=== PATIENT | female | born 1985 | race Caucasian/White ===

== ENCOUNTER 2019-08-17 09:15 | Emergency (ER) | payer OTHER ==
[2019-08-17 09:21] VITALS: TEMP 98.2
--- NOTE | 2019-08-17 09:36 | ED ---
Chest Pain HPI - General Source: patient, RN notes reviewed Mode of arrival: wheelchair Limitations: no limitations <Neptali Roman - Last Filed: 08/17/19 11:06> <Demetria Sargent - Last Filed: 08/20/19 23:43> - General Chief Complaint: Chest Pain Stated Complaint: chest & jaw pain Time Seen by Provider: 08/17/19 09:22 - History of Present Illness Initial Comments: 33-year-old female sent emergency Department chief complaint of left-sided intermittent chest pain for the last 7-10 days. Patient states that it comes and goes on its own it is sometimes with exertion. Patient does not feel short of breath at this time no pleuritic chest pain. Patient states that she's also had separate occasions of dizziness and nausea states that they're not associated together. She admits that she does have a history of mitral valve prolapse or regurgitation but states that this was diagnosed when she was in middle school. She has no significant cardiac history no significant family cardiac history. She is a nonsmoker. She does have history of peptic ulcer disease. Does not complain any major reflux at this time. (Neptali Roman) - Related Data Previous Rx's Medication Instructions Recorded Omeprazole [PriLOSEC] 20 mg PO AC-BRKFST #14 cap 08/17/19 Allergies Allergy/AdvReac Type Severity Reaction Status Date / Time codeine Allergy Nausea Verified 08/17/19 09:21 Review of Systems ROS Other: All systems not noted in ROS Statement are negative. <Neptali Roman - Last Filed: 08/17/19 11:06> ROS Other: All systems not noted in ROS Statement are negative. <Demetria Sargent - Last Filed: 08/20/19 23:43> ROS Statement: Those systems with pertinent positive or pertinent negative responses have been documented in the HPI. EKG Findings - EKG Comments: EKG Findings:: EKG performed at 9:33 rate of 84 MS 142 QRS 78 QT status QTC 372/439 <Neptali Roman - Last Filed: 08/17/19 11:06> Past Medical History Additional Past Medical History / Comment(s): mitral valve prolapse History of Any Multi-Drug Resistant Organisms: None Reported Past Surgical History: Appendectomy, Section, Cholecystectomy, Hernia Repair, Tonsillectomy Additional Past Surgical History / Comment(s): kidney operation Past Psychological History: No Psychological Hx Reported Smoking Status: Never smoker Past Alcohol Use History: None Reported Past Drug Use History: None Reported <Neptali Roman - Last Filed: 08/17/19 11:06> General Exam Limitations: no limitations General appearance: alert, in no apparent distress Head exam: Present: atraumatic, normocephalic, normal inspection Eye exam: Present: normal appearance, PERRL, EOMI. Absent: scleral icterus, conjunctival injection, periorbital swelling ENT exam: Present: normal exam, normal oropharynx, mucous membranes moist, TM's normal bilaterally Neck exam: Present: normal inspection, full ROM. Absent: tenderness, meningismus, lymphadenopathy Respiratory exam: Present: normal lung sounds bilaterally. Absent: respiratory distress, wheezes, rales, rhonchi, stridor Cardiovascular Exam: Present: regular rate, normal rhythm, normal heart sounds. Absent: systolic murmur, diastolic murmur, rubs, gallop, clicks GI/Abdominal exam: Present: soft, tenderness (Mild epigastric tenderness), normal bowel sounds. Absent: distended, guarding, rebound, rigid Back exam: Absent: CVA tenderness (R), CVA tenderness (L) Neurological exam: Present: alert, oriented X3, CN II-XII intact Skin exam: Present: warm, dry, intact, normal color. Absent: rash <Neptali Roman - Last Filed: 08/17/19 11:06> Course Vital Signs 08/17/19 08/17/19 09:17 11:35 Temperature 98.2 F Pulse Rate 87 75 Respiratory 18 16 Rate Blood Pressure 108/74 107/77 O2 Sat by Pulse 100 99 Oximetry Chest Pain MDM <Neptali Roman - Last Filed: 08/17/19 11:06> <Demetria Sargent - Last Filed: 08/20/19 23:43> - [facility] Labs, EKG and chest x-ray. There are no acute findings. This may related to GERD, atypical chest pain. Patient will follow-up for echo, Holter monitor and was started on and antacids. Return parameters were discussed. (Neptali Roman) Jose was available for consultation in the emergency department. The history and physical exam were done by the midlevel provider. I was consulted for this patients care. I reviewed the case with the midlevel provider and based on their presentation of the patient, I agree with the assessment, medical decision making and plan of care as documented. Chart was dictated using [employer] dictation software. Attempts were made to correct any dictation errors however some typographical errors may persist. Patient was seen during a [facility] emergency due to the Covid-19 pandemic. (Demetria Sargent) Disposition Is patient prescribed a controlled substance at d/c from ED?: No Time of Disposition: 11:07 <Neptali Roman - Last Filed: 08/17/19 11:06> <Demetria Sargent - Last Filed: 08/20/19 23:43> Clinical Impression: Atypical chest pain Disposition: HOME SELF-CARE Condition: Stable Instructions (If sedation given, give patient instructions): Chest Pain (ED) Additional Instructions: Please return to the Emergency Department if symptoms worsen or any other concerns. Prescriptions: Omeprazole [PriLOSEC] 20 mg PO -BRKFST #14 cap Referrals: Umair Harrison MD [Primary Care Provider] - 1-2 days Lexx Camejo MD [STAFF PHYSICIAN] - 1-2 days
[2019-08-17 09:51] LABS: Basophils % (A) 0 %; Eosinophils # (A) 0.2 k/uL (0-0.7); Eosinophils % (A) 2 %; HCT 41.3 % (34.0-46.0); HGB 13.5 gm/dL (11.4-16.0); Lymphocytes # (A) 1.7 k/uL (1.0-4.8); Lymphocytes % (A) 22 %; MCH 28.8 pg (25.0-35.0); MCHC 32.8 g/dL (31.0-37.0); MCV 87.8 fL (80.0-100.0); Mean Platelet Volume 7.9; Monocytes # (A) 0.3 k/uL (0-1.0); Monocytes % (A) 4 %; Neutrophils # (A) 5.3 k/uL (1.3-7.7); Neutrophils % (A) 71 %; Platelet Count 307 k/uL (150-450); RDW 12.9 % (11.5-15.5); WBC 7.5 k/uL (3.8-10.6)
--- NOTE | 2019-08-17 09:57 | XR ---
EXAMINATION TYPE: XR chest 2V DATE OF EXAM: 08/17/2019 COMPARISON: NONE HISTORY: Chest pain TECHNIQUE: Frontal and lateral views of the chest are obtained. FINDINGS: There is no focal air space opacity, pleural effusion, or pneumothorax seen. Mild pectus e xcavatum deformity slightly opacifies the right heart border. The cardiac silhouette size is within normal limits. The osseous structures are intact. Surgical clips in the right upper quadrant. IMPRESSION: No acute cardiopulmonary process.
[2019-08-17 10:02] LABS: ALT 16 U/L (4-34); AST 25 U/L (14-36); African American GFR (CKD) >90 (>60 ml/min/1.73 sqM); Albumin 4.4 g/dL (3.5-5.0); Alkaline Phosphatase 78 U/L (38-126); Anion Gap 11 mmol/L; Blood Urea Nitrogen 12 mg/dL (7-17); Calcium 9.2 mg/dL (8.4-10.2); Carbon Dioxide 23 mmol/L (22-30); Chloride 106 mmol/L (98-107); Glucose 114 mg/dL (74-99); Magnesium 2.2 mg/dL (1.6-2.3); Non-African American GFR(CKD) >90 (>60 ml/min/1.73 sqM); Potassium 4.2 mmol/L (3.5-5.1); Sodium 140 mmol/L (137-145); Total Bilirubin 0.3 mg/dL (0.2-1.3); Total Protein 7.8 g/dL (6.3-8.2)
[2019-08-17 10:05] LABS: D-Dimer 0.33 mg/L FEU (<0.60); INR 0.9 (<1.2); Prothrombin Time 9.5 sec (9.0-12.0)
[2019-08-17] MEDS ORDERED: ONDANSETRON 4 MG ODT STARTER PACK 2 TAB BTL PO STA (11:10)
[2019-08-17 11:36] VITALS: BP 107/77; PULSE 75; RESP 16
== END 2019-08-17 11:34 | disposition home or self-care (01) ==
LOC: EC 09:15
DX: R07.89 Other chest pain (principal); R42 Dizziness and giddiness; R11.0 Nausea; R10.816 Epigastric abdominal tenderness; Z88.5 Allergy status to narcotic agent; Z87.11 Personal history of peptic ulcer disease
CPT/HCPCS: 36415; 93005; 85379; 83880; 80053; 83690; 83735; 84484; 85025; 85610; 85730; 71046; 99285; S0119

== ENCOUNTER → 2021-02-25 | Outpatient (CLI) | payer OTHER ==
--- NOTE | 2021-02-26 07:15 | US ---
EXAMINATION TYPE: US thyroid st tissue head/neck DATE OF EXAM: 02/25/2021 COMPARISON: NONE CLINICAL HISTORY: E04.1 Thyroid nodule, R09.89 Choking. Choking sensation. Thyroid nodule. GLAND SIZE: Right Lobe: 4.6 x 1.5 x 1.1 cm Overall Parenchyma: homogenous Left Lobe: 3.6 x 1.4 x 1.3 cm Overall Parenchyma: homogeneous Isthmus Thickness: 0.16 cm NODULES RIGHT: # of nodules measured on right: 1 1. 0.9 X 0.6 x 0.5 cm, upper lateral, solid or almost completely solid, hypoechoic nodule, which is wider than tall, with ill-defined margins, without echogenic foci. Prior size: No prior. LEFT: # of nodules measured on left: 0 ISTHMUS: # of nodules measured in the isthmus: 0 Bilateral neck scanned. Hypoechoic area seen right neck 1.7 x 0.8 x 0.3 cm. At patient's area of concern, within the submandibular area, there appears to be a hypoechoic area: 1 .8 x 1.5 x 0.8 cm. IMPRESSION: Nonspecific subcentimeter nodule right thyroid lobe. Hypoechoic areas likely reflect small lymph node s.
== END | disposition home or self-care (01) ==
LOC: RADUSWWP 16:45
PROVIDERS: ATTEND Family Medicine
DX: E04.1 Nontoxic single thyroid nodule (principal)
CPT/HCPCS: 76536

== ENCOUNTER → 2021-04-15 | Outpatient (CLI) | payer OTHER ==
--- NOTE | 2021-04-16 09:03 | MM ---
Reason for exam: clinical finding. History: Family history of breast cancer in maternal grandmother. Took hormonal contraceptives for 3 months. Physical Findings: Nurse Summary: 1cm nodule in the left breast at 12 o'clock (nurse db). [facility] Diagnostic Mammo w CAD CHAS Bilateral CC and MLO view(s) were taken. The breast tissue is extremely dense which could obscure a lesion on mammography. There is no discrete abnormality including area of concern on left breast. These results were verbally communicated with the patient and result sheet given to the patient on 04/15/21. ASSESSMENT: Incomplete: need additional imaging evaluation, BI-RAD 0 RECOMMENDATION: Ultrasound of the left breast.
--- NOTE | 2021-04-16 09:04 | USB ---
Reason for exam: additional evaluation requested from abnormal screening. History: Family history of breast cancer in maternal grandmother. Took hormonal contraceptives for 3 months. US Breast Limited LT Left limited breast ultrasound including focal area of concern, retroareolar and axilla demonstrates no cystic or solid lesion seen. These results were verbally communicated with the patient and result sheet given to the patient on 04/15/21. ASSESSMENT: Negative, BI-RAD 1 RECOMMENDATION: Routine screening mammogram of both breasts at age 40. Manage patient on a clinical basis.
== END | disposition home or self-care (01) ==
LOC: RADMAMWWP 13:31
PROVIDERS: ATTEND Family Medicine
DX: N64.4 Mastodynia (principal); Z80.3 Family history of malignant neoplasm of breast
CPT/HCPCS: 77066

== ENCOUNTER → 2021-05-06 | Outpatient (CLI) | payer OTHER ==
--- NOTE | 2021-05-06 08:01 | US ---
EXAMINATION TYPE: US abdomen complete DATE OF EXAM: 05/06/2021 COMPARISON: US 08/12/2015 CLINICAL HISTORY: R11.0 Nausea. Pt states nausea and generalized ABD pain EXAM MEASUREMENTS: Liver Length: 14.4 cm CBD: 0.4 cm Spleen: 9.7 cm Right Kidney: 8.9 x 3.1 x 4.4 cm Left Kidney: 11.2 x 4.7 x 5.2 cm Pancreas: wnl Liver: wnl Gallbladder: Surgically absent Evidence for sonographic Loo's sign: No CBD: wnl Spleen: wnl Right Kidney: Small in size, probable scar tissue upper pole from prior surgery as a kid at age 4 Left Kidney: wnl Upper IVC: wnl Abd Aorta: wnl No abnormality visualized to account for pt's symptoms The liver is homogenous. The intrahepatic portion of the IVC and proximal abdominal aorta are within normal limits. There is no evidence of cholelithiasis. Common bile duct is unremarkable. The visu alized portions of the pancreas are homogenous. The spleen is unremarkable. Kidneys are symmetric a nd free of hydronephrosis. No renal lesions are seen. IMPRESSION: Diminutive right kidney. Otherwise unremarkable examination.
== END | disposition home or self-care (01) ==
LOC: RADUSWWP 07:34
PROVIDERS: ATTEND Family Medicine
DX: R11.0 Nausea (principal); R10.84 Generalized abdominal pain
CPT/HCPCS: 76700

== ENCOUNTER → 2021-05-15 | Outpatient (CLI) | payer OTHER ==
--- NOTE | 2021-05-15 11:16 | CT ---
EXAMINATION TYPE: CT soft tissue neck wo con DATE OF EXAM: 05/15/2021 HISTORY: Enlarged lymph nodes COMPARISON: Ultrasound dated 04/03/2021 CT DLP: 255.10 mGycm. Automated Exposure Control for Dose Reduction was Utilized. TECHNIQUE: CT scan of the neck is performed without IV contrast administration. Axial images are obt ained, coronal and sagittal reformatted images are reviewed. FINDINGS: Suboptimal assessment of the neck structures due to the lack of IV contrast administration. Right lev el 2 lymph node is seen measuring 10 mm, likely corresponding to one of the enlarged lymph nodes seen on the previous ultrasound. Other scattered bilateral upper cervical and submandibular prominent lym ph nodes, measuring up to 7 mm in left level 2 group. No other pathologically enlarged lymph nodes in the neck. Slightly prominent yet symmetrical lingual tonsils. Otherwise unremarkable nasopharynx, oropharynx, h ypopharynx, larynx, and the visualized portion of the trachea and esophagus, with the limitation of t his nonenhanced CT scan. Grossly unremarkable thyroid gland. Symmetrical unremarkable parotid and sub mandibular salivary glands. Clear mastoid air cells. No aggressive bone lesion. IMPRESSION: Prominent upper cervical and submandibular lymph nodes measuring up to 10 mm as described above, nons pecific. Recommend clinical correlation and clinical follow-up. If progressive or complicated (for ex ample by pain or fixation), a follow-up imaging by CT or ultrasound can be considered. No obvious nick picious neck lesion by this nonenhanced CT scan.
== END | disposition home or self-care (01) ==
LOC: RADCTMAIN 06:56
PROVIDERS: ATTEND Family Medicine
DX: R59.0 Localized enlarged lymph nodes (principal)
CPT/HCPCS: 70490

== ENCOUNTER → 2022-06-10 | Outpatient (CLI) | payer OTHER ==
--- NOTE | 2022-06-10 11:59 | US ---
EXAMINATION TYPE: US thyroid st tissue head/neck DATE OF EXAM: 06/10/2022 COMPARISON: CT, US CLINICAL HISTORY: I85.9 LYMPHADENITIS. Lymphadenitis and thyroid nodule per order. GLAND SIZE: Right Lobe: 4.8 x 1.4 x 1.3 cm Overall Parenchyma: homogenous Left Lobe: 3.8 x 1.2 x 1.2 cm Overall Parenchyma: homogeneous Isthmus Thickness: 0.18 cm NODULES RIGHT: # of nodules measured on right: 1 1. 1.0 X 0.6 x 0.4 cm, mid lateral, Prior size: No prior TIRADS Score: 4 TIRADS Category 4: Moderately Suspicious Composition: Solid or almost completely solid (2 points). Echogenicity: Hypoechoic (2 points). Shape: Wider than tall (0 points). Margin: Smooth (0 points). Echogenic foci: None or large comet-tail artifacts (0 points) Recommendation: If >1.5cm: FNA; If >1cm: Follow up at 1,2, 3,5 years LEFT: # of nodules measured on left: 0 ISTHMUS: # of nodules measured in the isthmus: 0 Bilateral neck scanned: Two hypoechoic areas with hyperechoic centers seen within the right neck near the submandibular gland , larger area measures 2.7 x 1.3 x 1.0 cm. Previously 2.4 x 1.1 x [address] 05/15/2021. Hypoechoic area with hyperechoic center seen within the left neck near the submandibular gland: 1.8 x 1.4 x 0.7 cm., IMPRESSION: 1. Bilateral neck lymph nodes which are enlarged, clinical correlation consider follow-up CT neck wi th IV contrast ensure stability. 2. Thyroid nodule that does not meet criteria for follow-up. Not definitely seen on prior CT.
--- NOTE | 2022-06-10 12:03 | CT ---
EXAMINATION TYPE: CT soft tissue neck wo con DATE OF EXAM: 06/10/2022 COMPARISON: CT neck May 15, 2021 HISTORY: Lt sided swelling marked with BB, lesion on tongue CT DLP: 379 mGycm. Automated Exposure Control for Dose Reduction was Utilized. TECHNIQUE: CT scan of the neck is performed without IV contrast. FINDINGS: Lack of IV contrast noted to limit evaluation for mucosal lesions and neck adenopathy. Airway remains grossly patent. Parotid and submandibular glands are symmetric and within normal limit s. Osseous structures remain intact. Metallic BB daniel palpable abnormality right neck axial image 37. There is persistent prominent lymph node at this level measuring 1.4 x 1.0 cm posterior to the right submandibular gland axial image 36 grossly stable from prior study. There are prominent and borderline slightly enlarged similar left-si ded neck lymph nodes at this level similar to prior. No new or enlarging adenopathy is seen. Involvem ent is at the level of the hyoid bone extending superiorly similar to prior. IMPRESSION: Stable nonspecific borderline bilateral neck adenopathy. Neoplasm such as lymphoma are no t entirely excluded versus benign etiology. Given one-year stability a incidental benign etiology is strongly favored.
== END | disposition home or self-care (01) ==
LOC: RADUSWWP 10:23
PROVIDERS: ATTEND Family Medicine
DX: E04.1 Nontoxic single thyroid nodule (principal); I88.9 Nonspecific lymphadenitis, unspecified
CPT/HCPCS: 70490; 76536

== ENCOUNTER → 2022-08-19 | Outpatient (CLI) | payer OTHER | END | disposition home or self-care (01) | LOC: RADCTMAIN 17:31 | PROVIDERS: ATTEND Internal Medicine Hematology & Oncology | DX: Z53.9 Procedure and treatment not carried out, unspecified reason (principal) ==

== ENCOUNTER → 2022-08-20 | Outpatient (CLI) | payer OTHER ==
--- NOTE | 2022-08-20 19:00 | CT ---
EXAMINATION TYPE: CT chest w con DATE OF EXAM: 08/20/2022 COMPARISON: 06/10/2022 CT neck HISTORY: Enlarged lymph nodes in neck area. Cough and sob x1yr. CT DLP: 220.9 mGycm, Automated exposure control for dose reduction was used. CONTRAST: Performed injected with 100cc mL of Isovue 300. TECHNIQUE: Axial images were obtained at 5 mm thick sections. Reconstructed images are reviewed on [employer] computer in the coronal plane. FINDINGS: Portion of the thyroid visualized is normal. No suspicious lung nodules or focal infiltrates are present. Tracheobronchial tree as visualized is u nremarkable. No enlarged mediastinal or hilar adenopathy is evident. Shotty lymphadenopathy is within the axillar y regions. No suspicious supraclavicular adenopathy within the field of view. The ascending aorta sujata meter at the level of the main pulmonary artery is 2.5 cm. The main pulmonary artery diameter at the bifurcation is 2.[address] sections are obtained through the upper abdomen. Gallbladder is surgically absent. Abdomen is essentially unremarkable. IMPRESSIONS: 1. Unremarkable CT chest
== END | disposition home or self-care (01) ==
LOC: RADCTMAIN 18:03
PROVIDERS: ATTEND Internal Medicine Hematology & Oncology
DX: R59.0 Localized enlarged lymph nodes (principal)
CPT/HCPCS: 71260; Q9967